=== PATIENT | female | born 1975 | race Caucasian/White ===

== ENCOUNTER 2018-12-08 12:38 | Inpatient (IN) | payer BC, SELFPAY ==
[2018-12-08] VITALS (12 sets, daily range): BP systolic 88–114; BP diastolic 46–85; PULSE 44–67; RESP 12–22; TEMP 36–36.3; O2SAT 93–100; BMI 28.4
--- NOTE | 2018-12-08 13:05 | DI.CT.S_ITS ---
PROCEDURE: CT HEAD/BRAIN WO CON INDICATIONS: found down TECHNIQUE: Noncontrast 4.5 mm thick angled axial sections acquired from the foramen magnum to the vertex, with coronal and sagittal reformats. For radiation dose reduction, the following was used: automated exposure control, adjustment of mA and/or kV according to patient size. COMPARISON: None. FINDINGS: Image quality: Excellent. CSF spaces: Basal cisterns are patent. No extra-axial fluid collections. Ventricles are normal in size and shape. Brain: No midline shift. No intracranial masses or hemorrhage. Coker-white matter interface is normal. Skull and face: Calvarium and visualized facial bones are intact, without suspicious lesions. Sinuses: Visualized sinuses and mastoids are clear. IMPRESSION: No acute intracranial disease process. Dictated by: Jeanette Mendiola MD, PhD on 12/08/2018 at 14:09 Approved by: Jeanette Mendiola MD, PhD on 12/08/2018 at 14:30
[2018-12-08] MEDS: NALOXONE 1 MG/ML SYRINGE 2 MG IV (13:16)
[2018-12-08 13:17] LABS: Prothrombin Time 11.5 SECONDS (10.1-12.7)
[2018-12-08] MEDS: SODIUM CHLORIDE 0.9% 1,000 ML 150 ML IV ×2 (13:17→16:46)
[2018-12-08 13:19] LABS: Add Manual Diff / Slide Review NO; Basophils Absolute Auto 0 /uL (0-100); Basophils Percent Auto 0.4 % (0-2); Eosinophils Absolute Auto 200 /uL (0-450); Eosinophils Percent Auto 1.6 % (2-4); Hematocrit 41.4 % (36-46); Hemoglobin 14.3 g/dL (12.0-16.0); Lymphocytes Absolute Auto 2300 /uL (1100-4500); Lymphocytes Percent Auto 24.3 % (25-40); Mean Corpuscular HGB Conc 34.4 % (30-36); Mean Corpuscular Hemoglobin 29.4 PG (26-34); Mean Corpuscular Volume 85.4 fL (80-100); Monocytes Absolute Auto 600 /uL (0-900); Monocytes Percent Auto 6.5 % (3-14); Neutrophils Absolute Auto 6400 /uL (1500-7000); Neutrophils Percent Auto 67.2 % (50-75); Platelet Count 241 X10^3/uL (150-400); Red Blood Cell Count 4.85 X10^6/uL (4.0-5.2); Red Cell Distribution Width 14.9 % (11.6-14.8); White Blood Cell Count 9.4 X10^3/uL (4.5-11.0)
[2018-12-08 13:20] LABS: PTT Partial Thromboplastin Tim 32 SECONDS (26.4-36.2)
--- NOTE | 2018-12-08 13:23 | PC.NURSE ---
Patient lethargic with altered mental status; Unable to answer any questions;
[2018-12-08 13:24] LABS: Acetaminophen < 10 ug/mL (10-30); Alanine Aminotransferase 13 IU/L (9-52); Albumin 4.9 g/dL (3.5-5.0); Albumin Globulin Ratio 1.4 (1.0-2.8); Alkaline Phosphatase 51 U/L (38-126); Aspartate Aminotransferase 31 IU/L (14-36); Bilirubin Total 0.7 mg/dL (0.2-1.3); Blood Urea Nitrogen 11 mg/dL (7-17); Calcium 10.3 mg/dL (8.4-10.2); Carbon Dioxide 21 mmol/L (22-32); Chloride 108 mmol/L (98-107); Creatine Kinase 202 U/L (30-135); Estimated Glomerular Filt Rate 54.7 mL/min (>60); Ethanol (ETOH) < 10 mg/dL; Globulin 3.4 g/dL (1.7-4.1); Glucose 133 mg/dL (70-100); HEMOLYSIS 30 (0-50); Potassium 3.8 mmol/L (3.4-5.1); Salicylate 7.3 mg/dL (<20); Sodium 143 mmol/L (137-145); Total Protein 8.3 g/dL (6.3-8.2)
[2018-12-08 13:27] LABS: Urine Amphetamines Negative (Negative); Urine Barbiturates Negative (Negative); Urine Benzodiazepines Negative (Negative); Urine Cocaine Negative (Negative); Urine MDMA Negative (Negative); Urine Methadone Negative (Negative); Urine Methamphetamines Negative (Negative); Urine Morphine/Opi cutoff 2000 Negative (Negative); Urine Oxycodone Negative (Negative); Urine Phencyclidine Negative (Negative); Urine Tetrahydrocannabinol Negative (Negative); Urine Tricyclic Antidepressant Negative (Negative)
--- NOTE | 2018-12-08 13:27 | PC.NURSE ---
Spoke w/ poison control.Gave list to poison control.
--- NOTE | 2018-12-08 13:32 | ED.AMS ---
HPI - Altered Mental Status General Chief Complaint: Altered Mental Status Stated Complaint: Overdose Time Seen by Provider: 12/08/18 12:42 Source: family and EMS Mode of arrival: EMS Limitations: altered mental status History of Present Illness HPI narrative: Patient is a 43-year-old female found unresponsive in a hotel room. She apparently missed checkout time made when in found her in the bathroom unresponsive which time EMS was called. Suicide no was found as well. She is unable to tell us which of her many medications she has taken. The only medication bottle that is empty is clonazepam which was filled in October 2018. Her has called multiple times week spoke with him she apparently is bipolar she has had multiple suicide attempts in the past. He says they sort of wait for a phone call from emergency department. She was out here for a job interview on Saturday. She lives in [place]. complaint: altered mental status Related Data Home Medications Medication Instructions Recorded Confirmed B-complex with vitamin C [Super B 1 tab PO DAILY 12/08/18 12/08/18 Complex-Vitamin C] PNV cmb#95-ferrous fumarate-FA 1 tab PO DAILY 12/08/18 12/08/18 [] aspirin 81 mg PO DAILY 12/08/18 12/08/18 atorvastatin 40 mg PO DAILY 12/08/18 12/08/18 clonazepam 0.5 mg PO DAILY PRN 12/08/18 12/08/18 diclofenac sodium 2 g TOPICAL QID 12/08/18 12/08/18 esomeprazole magnesium 40 mg PO DAILY 12/08/18 12/08/18 fenofibrate 54 mg PO DAILY 12/08/18 12/08/18 fluvoxamine 100 mg PO DAILY 12/08/18 12/08/18 gabapentin 600 mg PO TID 12/08/18 12/08/18 levocetirizine 5 mg PO PRN PRN 12/08/18 12/08/18 levothyroxine 125 mcg PO DAILY 12/08/18 12/08/18 naltrexone 50 mg PO DAILY 12/08/18 12/08/18 olopatadine 1 drp OPHTHALMIC (EYE) DAILY PRN 12/08/18 12/08/18 oxcarbazepine 300 mg PO BID 12/08/18 12/08/18 propranolol 60 mg PO DAILY 12/08/18 12/08/18 sucralfate 1 g PO BID 12/08/18 12/08/18 sumatriptan succinate 100 mg PO .ONCE PRN 12/08/18 12/08/18 topiramate 100 mg PO QAM 12/08/18 12/08/18 topiramate 200 mg PO QPM 12/08/18 12/08/18 trazodone 100 mg PO BEDTIME 12/08/18 12/08/18 ziprasidone HCl 80 mg PO BID 12/08/18 12/08/18 Allergies Allergy/AdvReac Type Severity Reaction Status Date / Time meperidine [From Demerol] Allergy Unknown Verified 12/08/18 14:48 Review of Systems Review of Systems ROS Unobtainable: Unobtainable due to medical condition Exam Initial Vital Signs Initial Vital Signs: Vital Signs Temperature 97.4 F L 12/08/18 12:30 Pulse Rate 46 L 12/08/18 12:30 Respiratory Rate 14 12/08/18 12:30 Blood Pressure 105/85 12/08/18 12:30 Pulse Oximetry 100 12/08/18 12:30 Gen.: Responsive to pain slightly diaphoretic HEENT: Head is atraumatic pupils not pinpoint reactive to light equal Neck: Supple no JVD Lungs: Clear bilaterally no wheezes rales or rhonchi Cardiac: Regular rate no murmur Abdomen: Soft nontender nondistend Extremities: No gross bony deformities peripheral pulses intact Neurologic: Responsive to pain mumbles words but they are unintelligible. Unable to follow commands Scores GCS [place] coma scale eye opening: To pressure [place] coma scale verbal response: Sounds Jackie coma scale motor response: Localising [place] coma scale total score: 9 Course Orders Ordered: ED Orders 12/08/18 12:47 EKG-12 Lead Stat 12/08/18 13:05 CT head/brain wo con Stat 12/08/18 13:11 Acetaminophen Stat Complete Blood Count AUTO DIFF Stat Comprehensive Metabolic Panel Stat Creatine Kinase Stat Ethanol (ETOH) Stat Partial Thromboplastin Time Stat Prolactin Stat Prothrombin Time INR Stat Salicylate Stat Thyroid Stimulating Hormone Stat Troponin I Stat Urine Culture Stat Urine Drug Screen, Rapid Stat 12/08/18 13:22 ABG [Arterial Blood Gas] Stat 12/08/18 13:32 Ammonia (NH3) Stat Lactate (Lactic Acid) Stat [place] Stat 12/08/18 13:39 Blood Culture Stat 12/08/18 16:05 MRSA PCR Urgent 12/08/18 18:48 Magnesium Urgent 12/08/18 19:00 Acetaminophen Urgent Sodium Chloride (Normal Saline 0.9%) 1,000 mls @ 150 mls/hr IV CONT VALERIO Last Admin: 12/08/18 16:46 Dose: 150 mls/hr Infusion: 12/08/18 15:51 Dose: 0 mls/hr Admin: 12/08/18 13:17 Dose: 150 mls/hr Non-Formulary Medication (Patient's Own Medication) 0 each PO PRN PRN PRN Reason: HOME MEDICATION STORAGE Discontinued Medications Naloxone HCl (Narcan) 2 mg IV NOW ONE Stop: 12/08/18 13:16 Last Admin: 12/08/18 13:18 Dose: Not Given Vital Signs - 8 hr 12/08/18 12:30 12/08/18 13:00 12/08/18 13:10 Temperature 97.4 F L Pulse Rate 46 L 48 L 47 L Respiratory Rate 14 14 12 Blood Pressure 105/85 Blood Pressure [Right Arm] 97/57 L 90/72 Pulse Oximetry 100 100 100 12/08/18 13:32 12/08/18 14:30 12/08/18 15:11 Temperature 97.4 F L Pulse Rate 49 L 44 L 62 Respiratory Rate 16 14 15 Blood Pressure Blood Pressure [Right Arm] 101/59 L 107/59 L 98/69 Pulse Oximetry 100 100 100 12/08/18 15:40 12/08/18 16:00 12/08/18 18:04 Temperature 96.8 F L Pulse Rate 52 L 57 L 66 Respiratory Rate 20 17 18 Blood Pressure 114/63 95/46 L Blood Pressure [Right Arm] 104/62 Pulse Oximetry 95 100 96 MDM - Altered Mental Status Lab Data Attestation: I reviewed the patient's lab results. Result diagrams: 12/08/18 13:11 12/08/18 13:11 Lab Results 12/08/18 12/08/18 12/08/18 Range/Units 13:11 13:11 13:11 WBC 9.4 (4.5-11.0) X10^3/uL RBC 4.85 (4.0-5.2) X10^6/uL Hgb 14.3 (12.0-16.0) g/dL Hct 41.4 (36-46) % MCV 85.4 (80-100) fL MCH 29.4 (26-34) PG MCHC 34.4 (30-36) % RDW 14.9 H (11.6-14.8) % Plt Count 241 (150-400) X10^3/uL Neut % (Auto) 67.2 (50-75) % Lymph % (Auto) 24.3 L (25-40) % [place] % (Auto) 6.5 (3-14) % Eos % (Auto) 1.6 L (2-4) % Baso % (Auto) 0.4 (0-2) % Neut # (Auto) 6400 (1014-7631) /uL Lymph # (Auto) 2300 (1717-1091) /uL [place] # (Auto) 600 (0-900) /uL Eos # (Auto) 200 (0-450) /uL Baso # (Auto) 0 (0-100) /uL PT 11.5 (10.1-12.7) SECONDS INR 1.0 (0.9-1.3) APTT 32 (26.4-36.2) SECONDS ABG pH (7.35-7.45) ABG pCO2 (35-45) mmHg ABG pO2 (80-100) mmHg ABG HCO3 (22-26) mmol/L ABG Total CO2 (21-31) mmol/L ABG O2 Saturation (95-100) % ABG Base Excess (-2-2) mmol/L FiO2 Sodium (137-145) mmol/L Potassium (3.4-5.1) mmol/L Chloride (98-107) mmol/L Carbon Dioxide (22-32) mmol/L BUN (7-17) mg/dL Creatinine (0.52-1.04) mg/dL Estimated GFR (>60) mL/min BUN/Creatinine Ratio (6-22) Glucose (70-100) mg/dL Lactate (0.7-2.1) mmol/L Calcium (8.4-10.2) mg/dL Total Bilirubin (0.2-1.3) mg/dL AST (14-36) IU/L ALT (9-52) IU/L Alkaline Phosphatase (38-126) U/L Ammonia (9-30) umol/L Total Creatine Kinase 202 H (30-135) U/L Troponin I (0.01-0.034) ng/mL Total Protein (6.3-8.2) g/dL Albumin (3.5-5.0) g/dL Globulin (1.7-4.1) g/dL Albumin/Globulin Ratio (1.0-2.8) TSH (0.47-4.68) uIU/mL Prolactin (3.0-18.6) ng/mL Salicylates (<20) mg/dL Urine Opiates Screen (Negative) Ur Oxycodone Screen (Negative) Urine Methadone Screen (Negative) Acetaminophen (10-30) ug/mL Ur Barbiturates Screen (Negative) U Tricyclic Antidepress (Negative) Ur Phencyclidine Scrn (Negative) Ur Amphetamines Screen (Negative) U Methamphetamines Scrn (Negative) Ur MDMA Scrn (Ecstasy) (Negative) U Benzodiazepines Scrn (Negative) [place] (0.6-1.2) mmol/L Urine Cocaine Screen (Negative) U Marijuana (THC) Screen (Negative) Ethyl Alcohol ( - 10) mg/dL 12/08/18 12/08/18 12/08/18 Range/Units 13:11 13:11 13:11 WBC (4.5-11.0) X10^3/uL RBC (4.0-5.2) X10^6/uL Hgb (12.0-16.0) g/dL Hct (36-46) % MCV (80-100) fL MCH (26-34) PG MCHC (30-36) % RDW (11.6-14.8) % Plt Count (150-400) X10^3/uL Neut % (Auto) (50-75) % Lymph % (Auto) (25-40) % [place] % (Auto) (3-14) % Eos % (Auto) (2-4) % Baso % (Auto) (0-2) % Neut # (Auto) (3795-1013) /uL Lymph # (Auto) (4674-7213) /uL [place] # (Auto) (0-900) /uL Eos # (Auto) (0-450) /uL Baso # (Auto) (0-100) /uL PT (10.1-12.7) SECONDS INR (0.9-1.3) APTT (26.4-36.2) SECONDS ABG pH (7.35-7.45) ABG pCO2 (35-45) mmHg ABG pO2 (80-100) mmHg ABG HCO3 (22-26) mmol/L ABG Total CO2 (21-31) mmol/L ABG O2 Saturation (95-100) % ABG Base Excess (-2-2) mmol/L FiO2 Sodium 143 (137-145) mmol/L Potassium 3.8 (3.4-5.1) mmol/L Chloride 108 H (98-107) mmol/L Carbon Dioxide 21 L (22-32) mmol/L BUN 11 (7-17) mg/dL Creatinine 1.10 H (0.52-1.04) mg/dL Estimated GFR 54.7 L (>60) mL/min BUN/Creatinine Ratio 10.0 (6-22) Glucose 133 H (70-100) mg/dL Lactate (0.7-2.1) mmol/L Calcium 10.3 H (8.4-10.2) mg/dL Total Bilirubin 0.7 (0.2-1.3) mg/dL AST 31 (14-36) IU/L ALT 13 (9-52) IU/L Alkaline Phosphatase 51 (38-126) U/L Ammonia (9-30) umol/L Total Creatine Kinase (30-135) U/L Troponin I < 0.012 (0.01-0.034) ng/mL Total Protein 8.3 H (6.3-8.2) g/dL Albumin 4.9 (3.5-5.0) g/dL Globulin 3.4 (1.7-4.1) g/dL Albumin/Globulin Ratio 1.4 (1.0-2.8) TSH 0.74 (0.47-4.68) uIU/mL Prolactin 18.8 H (3.0-18.6) ng/mL Salicylates 7.3 (<20) mg/dL Urine Opiates Screen Negative (Negative) Ur Oxycodone Screen Negative (Negative) Urine Methadone Screen Negative (Negative) Acetaminophen < 10 L (10-30) ug/mL Ur Barbiturates Screen Negative (Negative) U Tricyclic Antidepress Negative (Negative) Ur Phencyclidine Scrn Negative (Negative) Ur Amphetamines Screen Negative (Negative) U Methamphetamines Scrn Negative (Negative) Ur MDMA Scrn (Ecstasy) Negative (Negative) U Benzodiazepines Scrn Negative (Negative) [place] (0.6-1.2) mmol/L Urine Cocaine Screen Negative (Negative) U Marijuana (THC) Screen Negative (Negative) Ethyl Alcohol < 10 ( - 10) mg/dL 12/08/18 12/08/18 12/08/18 Range/Units 13:22 13:32 13:32 WBC (4.5-11.0) X10^3/uL RBC (4.0-5.2) X10^6/uL Hgb (12.0-16.0) g/dL Hct (36-46) % MCV (80-100) fL MCH (26-34) PG MCHC (30-36) % RDW (11.6-14.8) % Plt Count (150-400) X10^3/uL Neut % (Auto) (50-75) % Lymph % (Auto) (25-40) % [place] % (Auto) (3-14) % Eos % (Auto) (2-4) % Baso % (Auto) (0-2) % Neut # (Auto) (0737-8190) /uL Lymph # (Auto) (7398-2627) /uL [place] # (Auto) (0-900) /uL Eos # (Auto) (0-450) /uL Baso # (Auto) (0-100) /uL PT (10.1-12.7) SECONDS INR (0.9-1.3) APTT (26.4-36.2) SECONDS ABG pH 7.33 L (7.35-7.45) ABG pCO2 34.9 L (35-45) mmHg ABG pO2 92 (80-100) mmHg ABG HCO3 19 L (22-26) mmol/L ABG Total CO2 20 L (21-31) mmol/L ABG O2 Saturation 97 (95-100) % ABG Base Excess -7.0 L (-2-2) mmol/L FiO2 0.21 Sodium (137-145) mmol/L Potassium (3.4-5.1) mmol/L Chloride (98-107) mmol/L Carbon Dioxide (22-32) mmol/L BUN (7-17) mg/dL Creatinine (0.52-1.04) mg/dL Estimated GFR (>60) mL/min BUN/Creatinine Ratio (6-22) Glucose (70-100) mg/dL Lactate 1.7 (0.7-2.1) mmol/L Calcium (8.4-10.2) mg/dL Total Bilirubin (0.2-1.3) mg/dL AST (14-36) IU/L ALT (9-52) IU/L Alkaline Phosphatase (38-126) U/L Ammonia 33.0 H (9-30) umol/L Total Creatine Kinase (30-135) U/L Troponin I (0.01-0.034) ng/mL Total Protein (6.3-8.2) g/dL Albumin (3.5-5.0) g/dL Globulin (1.7-4.1) g/dL Albumin/Globulin Ratio (1.0-2.8) TSH (0.47-4.68) uIU/mL Prolactin (3.0-18.6) ng/mL Salicylates (<20) mg/dL Urine Opiates Screen (Negative) Ur Oxycodone Screen (Negative) Urine Methadone Screen (Negative) Acetaminophen (10-30) ug/mL Ur Barbiturates Screen (Negative) U Tricyclic Antidepress (Negative) Ur Phencyclidine Scrn (Negative) Ur Amphetamines Screen (Negative) U Methamphetamines Scrn (Negative) Ur MDMA Scrn (Ecstasy) (Negative) U Benzodiazepines Scrn (Negative) [place] (0.6-1.2) mmol/L Urine Cocaine Screen (Negative) U Marijuana (THC) Screen (Negative) Ethyl Alcohol ( - 10) mg/dL 12/08/18 Range/Units 13:32 WBC (4.5-11.0) X10^3/uL RBC (4.0-5.2) X10^6/uL Hgb (12.0-16.0) g/dL Hct (36-46) % MCV (80-100) fL MCH (26-34) PG MCHC (30-36) % RDW (11.6-14.8) % Plt Count (150-400) X10^3/uL Neut % (Auto) (50-75) % Lymph % (Auto) (25-40) % [place] % (Auto) (3-14) % Eos % (Auto) (2-4) % Baso % (Auto) (0-2) % Neut # (Auto) (6418-8043) /uL Lymph # (Auto) (9892-6255) /uL [place] # (Auto) (0-900) /uL Eos # (Auto) (0-450) /uL Baso # (Auto) (0-100) /uL PT (10.1-12.7) SECONDS INR (0.9-1.3) APTT (26.4-36.2) SECONDS ABG pH (7.35-7.45) ABG pCO2 (35-45) mmHg ABG pO2 (80-100) mmHg ABG HCO3 (22-26) mmol/L ABG Total CO2 (21-31) mmol/L ABG O2 Saturation (95-100) % ABG Base Excess (-2-2) mmol/L FiO2 Sodium (137-145) mmol/L Potassium (3.4-5.1) mmol/L Chloride (98-107) mmol/L Carbon Dioxide (22-32) mmol/L BUN (7-17) mg/dL Creatinine (0.52-1.04) mg/dL Estimated GFR (>60) mL/min BUN/Creatinine Ratio (6-22) Glucose (70-100) mg/dL Lactate (0.7-2.1) mmol/L Calcium (8.4-10.2) mg/dL Total Bilirubin (0.2-1.3) mg/dL AST (14-36) IU/L ALT (9-52) IU/L Alkaline Phosphatase (38-126) U/L Ammonia (9-30) umol/L Total Creatine Kinase (30-135) U/L Troponin I (0.01-0.034) ng/mL Total Protein (6.3-8.2) g/dL Albumin (3.5-5.0) g/dL Globulin (1.7-4.1) g/dL Albumin/Globulin Ratio (1.0-2.8) TSH (0.47-4.68) uIU/mL Prolactin (3.0-18.6) ng/mL Salicylates (<20) mg/dL Urine Opiates Screen (Negative) Ur Oxycodone Screen (Negative) Urine Methadone Screen (Negative) Acetaminophen (10-30) ug/mL Ur Barbiturates Screen (Negative) U Tricyclic Antidepress (Negative) Ur Phencyclidine Scrn (Negative) Ur Amphetamines Screen (Negative) U Methamphetamines Scrn (Negative) Ur MDMA Scrn (Ecstasy) (Negative) U Benzodiazepines Scrn (Negative) [place] < 0.2 L (0.6-1.2) mmol/L Urine Cocaine Screen (Negative) U Marijuana (THC) Screen (Negative) Ethyl Alcohol ( - 10) mg/dL Point of Care Testing Test Results Negative Glucose POC [address] scan - head: Radiologist's impression: PROCEDURE: CT HEAD/BRAIN WO CON INDICATIONS: found down TECHNIQUE: Noncontrast 4.5 mm thick angled axial sections acquired from the foramen magnum to the vertex, with coronal and sagittal reformats. For radiation dose reduction, the following was used: automated exposure control, adjustment of mA and/or kV according to patient size. COMPARISON: None. FINDINGS: Image quality: Excellent. CSF spaces: Basal cisterns are patent. No extra-axial fluid collections. Ventricles are normal in size and shape. Brain: No midline shift. No intracranial masses or hemorrhage. [place]oker-white matter interface is normal. Skull and face: Calvarium and visualized facial bones are intact, without suspicious lesions. Sinuses: Visualized sinuses and mastoids are clear. IMPRESSION: No acute intracranial disease process. Dictated by: Jeanette Mendiola MD, PhD on 12/08/2018 at 14:09 ECG Data Attestation: I personally reviewed and interpreted this ECG as follows: Prior ECG tracings: not available for review Interpretation: Sinus rhythm rate 49 p.r. interval 191 QRS 95 QTC 430 MDM Narrative Medical decision making narrative: Poison Control was contacted initially. Most of patient's medications are quite full. Clonazepam filled in October is empty. Her tox screen is completely negative. She was given 2 mg of Narcan and had no response. It is unclear what she took an overdose on. Her did call the emergency department we got some history from him as stated in the above HPI frequent attempts of suicide. Poison Control was contacted initially at this time recommend supportive care. Patient's heart rate is lower in the 40s it does not drop into the 30s. Blood pressure response well with IV fluids. At this time I do not believe her to have a beta-charli overdose. She is taking propranolol that bottle again also is quite full. Patient will need to be be more awake before she can be medically cleared. At this time she like he did several hours. I have spoken with Dr. blevins who accepts her to inpatient aware of need for suicide precautions. At this time she is responsive to pain no need for intubation Discharge Plan Departure Patient Disposition: Admitted As Inpatient Clinical Impression: Suicidal ideation, Acute metabolic encephalopathy Discharge Date/Time: 12/08/18 15:49 Interventions: ED Discharge Assessment Last Done: 12/08/18 15:45 Admit Date/Time: 12/08/18 15:20 Admit Provider: Yara Pineda
[2018-12-08 13:34] LABS: Troponin I < 0.012 ng/mL (0.01-0.034)
--- NOTE | 2018-12-08 13:34 | PC.NURSE ---
Poison control: Supportive care at this time.
--- NOTE | 2018-12-08 13:36 | PC.NURSE ---
ABG per RT;
[2018-12-08 13:38] LABS: Fractionated Inspired Oxygen 0.21; HCO3 ABG 19 mmol/L (22-26); Oxygen Saturation ABG 97 % (95-100); PCO2 ABG 34.9 mmHg (35-45); PO2 ABG 92 mmHg (80-100); TCO2 ABG 20 mmol/L (21-31); pH ABG 7.33 (7.35-7.45)
[2018-12-08 13:38] LABS: Prolactin 18.8 ng/mL (3.0-18.6)
[2018-12-08 13:49] LABS: Lactate (Lactic Acid) 1.7 mmol/L (0.7-2.1)
[2018-12-08 14:31] LABS: Thyroid Stimulating Hormone 0.74 uIU/mL (0.47-4.68)
--- NOTE | 2018-12-08 14:56 | PC.NURSE ---
Found Armando and [place] on pt's phone and was able to contact. Armando is pt's ([phone]) and next of kin. Armando states pt has had 2 previous serious suicide attempts both w/ hydrocodone but states she no longer has it prescribed to her. She has also had toxic lithium level in the past. (Order for lithium placed...not in current medication bottles.) Armando states that she has long h/o bipolar disorder and that this attempt is not unexpected. He states she came to [employer] for a job interview. Updated on patient condition. States he will wait for further information before traveling north.
--- NOTE | 2018-12-08 15:05 | PC.NURSE ---
[facility] states PCP is Finn Plummer: [facility] ([place], [place]) [phone]. Office is currently closed. Attempting to get records from [facility], left message.
[2018-12-08 15:20] LABS: Lithium < 0.2 mmol/L (0.6-1.2)
--- NOTE | 2018-12-08 17:53 | PC.NURSE ---
Addendum entered by Crystal Momin R.N. 12/08/18 19:27: 1925 - Pt opens eyes to light stimuli. Reports sore throat, however movement and mentation continues to be delayed. Reoriented to place and situation. Otherwise pt is resting quietly. HR 70, BP 97/54. 1845 - Call received from Poison Control Center. Suggested magnesium level be checked r/t prolong QT. Mag level add on to ER lab work. Original Note: 1600 - Pt to room from ER. Transfer to bed via slider board. Pt able to open her eyes. Able to say that she is in the hospital, and that she has a sore throat. Weakness to all extremities. Tracks finger movement with eyes to the left then dozing off. Skin intact. playground monitor demonstrating SB with prolong QT. Dr. Pineda notified that pt has arrived in room and of current HR. Pt with a bag full of medications, delivered to pharmacy. 1800 - Pt resting in bed. Snoring. Seizure pads in place. BP 95/46, HR 66. Sats 96% on RA. Bed alarm on.
--- NOTE | 2018-12-08 19:24 | CM.SWNOTE ---
AUTO HIKER Note: AUTO HIKER reviewed chart and contacted ICU. SPoke with pt's RN, Naomy who informed AUTO HIKER that pt is not medically clear, only intermittently awake and and when awake responds in 1 word answers. Although it appears as though this was an intentional OD, since pt cannot be interviewed, a mental health assessment cannot be completed at this time. SW will continue to follow.
[2018-12-08 19:38] LABS: Acetaminophen < 10 ug/mL (10-30)
--- NOTE | 2018-12-08 20:14 | DI.RAD.S_ITS ---
PROCEDURE: XR CHEST 1V INDICATIONS: Altered mental status, poss aspiration TECHNIQUE: One view of the chest was acquired. COMPARISON: None. FINDINGS: Surgical changes and devices: None. Lungs and pleura: Lungs are clear. No pleural effusions or pneumothorax. Mediastinum: Mediastinal contours appear normal. Heart size is normal. Bones and chest wall: No suspicious bony lesions. Overlying soft tissues appear unremarkable. IMPRESSION: No acute cardiopulmonary disease process. Dictated by: Jeanette Mendiola MD, PhD on 12/08/2018 at 21:03 Approved by: Jeanette Mendiola MD, PhD on 12/08/2018 at 21:04
[2018-12-08 20:15] LABS: Bacteria Urine None Seen; RBC Urine None Seen (0-5/HPF)
[2018-12-08 20:28] LABS: Appearance Urine UA CLEAR; Bilirubin Urine UA NEGATIVE (NEGATIVE); Color Urine UA YELLOW; Glucose Urine UA NEGATIVE (Negative); Ketones Urine UA NEGATIVE (NEGATIVE); Leukocyte Esterase Urine UA NEGATIVE (NEGATIVE); Nitrite Urine UA NEGATIVE (Negative); Occult Blood Urine UA NEGATIVE (Negative); Protein Urine UA NEGATIVE (Negative); Urobilinogen Urine UA 0.2 E.U./dL (0.2); pH Urine UA 6.5 (4.5-8.0)
[2018-12-08 20:34] LABS: Squamous Epithelial Cell Urine 1-5 /HPF (0-5/HPF); WBC Urine 0-1/HPF (0-5/HPF)
[2018-12-08 20:35] LABS: Amorphous Sediment Urine 1+; Culture Indicated Urine Cult Not Indicated; Mucus Urine 1+ (Negative)
[2018-12-08] MEDS: CEFTRIAXONE 2 GM/50 ML FROZ.PIGGY IV (20:58)
[2018-12-08] MEDS: FAMOTIDINE 20 MG/50 ML PIGGYBACK 200 MG IV (21:58)
[2018-12-08] MEDS: SODIUM CHLORIDE 0.9% FLUSH 10 ML IV (21:58)
--- NOTE | 2018-12-08 22:49 | P.HP_ITS ---
History of Present Illness Date Patient Seen: 12/08/18 Time Patient Seen: 20:05 Chief complaint: Overdose Narrative: Ms. Roberta Chin is a 43-year-old female patient with history significant for bipolar disorder, prior multiple suicidal attempts who presents to the emergency department the EMS following being found down in her hotel room for unknown period of time. Little medical information is available as it appears the patient is here for job interview from out of the area. The patient was found down in her room at her hotel following missing checkout time. A note was found in the patient's room but is not available for review but with allegedly indicats that this was an intentional overdose with directions on what to do with her belongings. The ER provider did speak with patient's who ascertained that the patient has had multiple prior suicide attempts. It is noted the patient has significant polypharmacy from numerous different providers. The patient is very somnolent responding to verbal stimulus and able to state that she is in [place] and state the year but has difficulty with the month. Her speech is slurred and she mumbles and is only able to remain responsive for brief periods. The patient is able to indicate that she took clonazepam and on repeated questioning acknowledges that she took 29 pills, confirms the bottle was full and that she is not taking the medication since prescribed in October. The remainder the patient's medications appear to have been accounted for. The patient is unable to participate in a meaningful review of systems however she denies complaints of pain, has no chest pain or shortness of breath, abdominal pain or nausea. Upon arrival in the ER the patient was afebrile at 97.4, bradycardic at heart rate of 46, blood pressure 105/85, respirations 14 saturating 100% on room air. A CT of the head was obtained finding no acute intracranial processes. Laboratory analysis reveals white count of 9.4, hemoglobin of 14.3 and hematocrit of 41.4 with a platelet count of 241. Her coagulation studies are within normal limits as are her electrolytes. Her BUN and creatinine are 11 and 1.0 respectively. A nonfasting glucose is 133. Lactic acid is 1.3 and magnesium 2.0. An ABG was obtained finding pH of 7.33, pCO2 34.9, PO2 of 92 with a bicarb of 19 and base excess of -7 on room air. Tox screen is negative for benzodiazepines negative for lithium, aspirin or Tylenol or other substances. At this time the patient is admitted to the ICU stuporous following overdose of unclear source in an intentional suicide attempt. Patient History Medical History Bipolar 1 disorder (Acute) Suicide attempt (Acute) Social History Smoking Status: Unknown if ever smoked Family & Social History Family history unavailable: Yes (Due to patient's altered mental status) Social History: From review of the medical record the patient appears to live in [place] and was traveling to [place] for a job interview. The patient's social and family history are unobtainable. Smoking: Unknown Alcohol: Unknown Substance use: Unknown Advanced directives: At this time the patient is on an involuntary hold following attempted suicide and will be a FULL CODE. The patient does not have capacity to name a surrogate decision maker. Tobacco & Substance use: Smoking Status Unknown if ever smoked Meds Home Medications Medication Instructions Recorded Confirmed Type B-complex with vitamin C [Super B 1 tab PO DAILY 12/08/18 12/08/18 History Complex-Vitamin C] PNV cmb#95-ferrous fumarate-FA 1 tab PO DAILY 12/08/18 12/08/18 History [] aspirin 81 mg PO DAILY 12/08/18 12/08/18 History atorvastatin 40 mg PO DAILY 12/08/18 12/08/18 History clonazepam 0.5 mg PO DAILY PRN 12/08/18 12/08/18 History diclofenac sodium 2 g TOPICAL QID 12/08/18 12/08/18 History esomeprazole magnesium 40 mg PO DAILY 12/08/18 12/08/18 History fenofibrate 54 mg PO DAILY 12/08/18 12/08/18 History fluvoxamine 100 mg PO DAILY 12/08/18 12/08/18 History gabapentin 600 mg PO TID 12/08/18 12/08/18 History levocetirizine 5 mg PO PRN PRN 12/08/18 12/08/18 History levothyroxine 125 mcg PO DAILY 12/08/18 12/08/18 History naltrexone 50 mg PO DAILY 12/08/18 12/08/18 History olopatadine 1 drp OPHTHALMIC (EYE) DAILY PRN 12/08/18 12/08/18 History oxcarbazepine 300 mg PO BID 12/08/18 12/08/18 History propranolol 60 mg PO DAILY 12/08/18 12/08/18 History sucralfate 1 g PO BID 12/08/18 12/08/18 History sumatriptan succinate 100 mg PO .ONCE PRN 12/08/18 12/08/18 History topiramate 100 mg PO QAM 12/08/18 12/08/18 History topiramate 200 mg PO QPM 12/08/18 12/08/18 History trazodone 100 mg PO BEDTIME 12/08/18 12/08/18 History ziprasidone HCl 80 mg PO BID 12/08/18 12/08/18 History Allergies Allergy/AdvReac Type Severity Reaction Status Date / Time meperidine [From Demerol] Allergy Unknown Verified 12/08/18 14:48 Review of Systems Review of Systems unobtainable due to mental status (Status post overdose, somnolent) Exam Vital Signs (past 8 hours): - 12/08/18 15:11 12/08/18 15:40 12/08/18 16:00 Temperature 96.8 F L Pulse Rate 62 52 L 57 L Respiratory Rate 15 20 17 Blood Pressure 114/63 Blood Pressure [Right Arm] 98/69 104/62 Pulse Oximetry 100 95 100 12/08/18 18:04 12/08/18 20:24 12/08/18 21:09 Temperature Pulse Rate 66 67 Respiratory Rate 18 22 Blood Pressure 95/46 L 88/56 L Blood Pressure [Right Arm] Pulse Oximetry 96 94 93 12/08/18 22:01 Temperature Pulse Rate 64 Respiratory Rate 19 Blood Pressure 94/54 L Blood Pressure [Right Arm] Pulse Oximetry 96 Oxygen Delivery Method Nasal Cannula Oxygen Flow Rate 3 Narrative Exam Narrative: GENERAL APPEARANCE: well developed, well nourished, somnolent HEAD: Normocephalic, atraumatic, no scalp lesions. EYES: pupils equal, round, reactive to light and accommodation, sclera non- icteric. EARS: normal appearing, no drainage. NOSE: Normal appearing, no rhinorrhea. ORAL CAVITY: Dry mucous membranes without lesions or exudate, palate normal, tongue in midline. THROAT: Poorly visualized, no erythema noted. NECK/THYROID: neck supple, no jugular venous distention, no carotid bruit, b/l goiter no nodules noted, trachea midline. LYMPH NODES: no cervical or supraclavicular lymphadenopathy. SKIN: warm and dry, no suspicious lesions or punctures, no rashes, good turgor. HEART: Bradycardic rate and rhythm, S1-S2 without murmur, no rubs or gallops, brisk capillary refill, no edema LUNGS: clear to auscultation bilaterally, no coarseness crackles or wheezing, cough present with deep inspiration CHEST: Symmetrical movement, no accessory muscle use. ABDOMEN: Soft, no distention, no pain response to abdominal palpation, no guarding or peritoneal signs, no organomegaly, active bowel tones. EXTREMITIES: Moves all extremities weakly, movement is symmetrical, no joint deformities or effusions noted. NEUROLOGIC: Briefly responsive to tactile stimulus, AAO x2, generalized weakness, stuporous, follows commands inconsistently. PSYCH: Poor eye contact, briefly responsive to eye opening, states overdose was intentional and ?I did not know what to do?. Objective Labs Result Diagrams: 12/08/18 13:11 12/08/18 13:11 Labs: Laboratory Results - last 24 hr 12/08/18 12/08/18 12/08/18 13:00 13:00 13:11 WBC RBC Hgb Hct MCV MCH MCHC RDW Plt Count Neut % (Auto) Lymph % (Auto) [place] % (Auto) Eos % (Auto) Baso % (Auto) Neut # (Auto) Lymph # (Auto) [place] # (Auto) Eos # (Auto) Baso # (Auto) PT INR APTT ABG pH ABG pCO2 ABG pO2 ABG HCO3 ABG Total CO2 ABG O2 Saturation ABG Base Excess FiO2 Sodium Potassium Chloride Carbon Dioxide BUN Creatinine Estimated GFR BUN/Creatinine Ratio Glucose Lactate Calcium Magnesium Total Bilirubin AST ALT Alkaline Phosphatase Ammonia Total Creatine Kinase 202 H Troponin I Total Protein Albumin Globulin Albumin/Globulin Ratio TSH Prolactin Urine Color Yellow Urine Appearance Clear Urine pH 6.5 Ur Specific [place] 1.010 Urine Protein Negative Urine Glucose (UA) Negative Urine Ketones Negative Urine Occult Blood Negative Urine Nitrate Negative Urine Bilirubin Negative Urine Urobilinogen 0.2 Ur Leukocyte Esterase Negative Urine RBC None seen Urine WBC 0-1/hpf Ur Squamous Epith Cells 1-5 /hpf Amorphous Sediment 1+ Urine Bacteria None seen Urine Mucus 1+ H Ur Culture Indicated? Cult not indicated Nasal Screen MRSA (PCR) Salicylates Urine Opiates Screen Negative Ur Oxycodone Screen Negative Urine Methadone Screen Negative Acetaminophen Ur Barbiturates Screen Negative U Tricyclic Antidepress Negative Ur Phencyclidine Scrn Negative Ur Amphetamines Screen Negative U Methamphetamines Scrn Negative Ur MDMA Scrn (Ecstasy) Negative U Benzodiazepines Scrn Negative [place] Urine Cocaine Screen Negative U Marijuana (THC) Screen Negative Ethyl Alcohol 12/08/18 12/08/18 12/08/18 13:11 13:11 13:11 WBC 9.4 RBC 4.85 Hgb 14.3 Hct 41.4 MCV 85.4 MCH 29.4 MCHC 34.4 RDW 14.9 H Plt Count 241 Neut % (Auto) 67.2 Lymph % (Auto) 24.3 L [place] % (Auto) 6.5 Eos % (Auto) 1.6 L Baso % (Auto) 0.4 Neut # (Auto) 6400 Lymph # (Auto) 2300 [place] # (Auto) 600 Eos # (Auto) 200 Baso # (Auto) 0 PT 11.5 INR 1.0 APTT 32 ABG pH ABG pCO2 ABG pO2 ABG HCO3 ABG Total CO2 ABG O2 Saturation ABG Base Excess FiO2 Sodium 143 Potassium 3.8 Chloride 108 H Carbon Dioxide 21 L BUN 11 Creatinine 1.10 H Estimated GFR 54.7 L BUN/Creatinine Ratio 10.0 Glucose 133 H Lactate Calcium 10.3 H Magnesium Total Bilirubin 0.7 AST 31 ALT 13 Alkaline Phosphatase 51 Ammonia Total Creatine Kinase Troponin I < 0.012 Total Protein 8.3 H Albumin 4.9 Globulin 3.4 Albumin/Globulin Ratio 1.4 TSH Prolactin 18.8 H Urine Color Urine Appearance Urine pH Ur Specific [place] Urine Protein Urine Glucose (UA) Urine Ketones Urine Occult Blood Urine Nitrate Urine Bilirubin Urine Urobilinogen Ur Leukocyte Esterase Urine RBC Urine WBC Ur Squamous Epith Cells Amorphous Sediment Urine Bacteria Urine Mucus Ur Culture Indicated? Nasal Screen MRSA (PCR) Salicylates 7.3 Urine Opiates Screen Ur Oxycodone Screen Urine Methadone Screen Acetaminophen < 10 L Ur Barbiturates Screen U Tricyclic Antidepress Ur Phencyclidine Scrn Ur Amphetamines Screen U Methamphetamines Scrn Ur MDMA Scrn (Ecstasy) U Benzodiazepines Scrn [place] Urine Cocaine Screen U Marijuana (THC) Screen Ethyl Alcohol < 10 12/08/18 12/08/1812/08/19 13:11 13:22 13:32 WBC RBC Hgb Hct MCV MCH MCHC RDW Plt Count Neut % (Auto) Lymph % (Auto) [place] % (Auto) Eos % (Auto) Baso % (Auto) Neut # (Auto) Lymph # (Auto) [place] # (Auto) Eos # (Auto) Baso # (Auto) PT INR APTT ABG pH 7.33 L ABG pCO2 34.9 L ABG pO2 92 ABG HCO3 19 L ABG Total CO2 20 L ABG O2 Saturation 97 ABG Base Excess -7.0 L FiO2 0.21 Sodium Potassium Chloride Carbon Dioxide BUN Creatinine Estimated GFR BUN/Creatinine Ratio Glucose Lactate Calcium Magnesium Total Bilirubin AST ALT Alkaline Phosphatase Ammonia 33.0 H Total Creatine Kinase Troponin I Total Protein Albumin Globulin Albumin/Globulin Ratio TSH 0.74 Prolactin Urine Color Urine Appearance Urine pH Ur Specific [place] Urine Protein Urine Glucose (UA) Urine Ketones Urine Occult Blood Urine Nitrate Urine Bilirubin Urine Urobilinogen Ur Leukocyte Esterase Urine RBC Urine WBC Ur Squamous Epith Cells Amorphous Sediment Urine Bacteria Urine Mucus Ur Culture Indicated? Nasal Screen MRSA (PCR) Salicylates Urine Opiates Screen Ur Oxycodone Screen Urine Methadone Screen Acetaminophen Ur Barbiturates Screen U Tricyclic Antidepress Ur Phencyclidine Scrn Ur Amphetamines Screen U Methamphetamines Scrn Ur MDMA Scrn (Ecstasy) U Benzodiazepines Scrn [place] Urine Cocaine Screen U Marijuana (THC) Screen Ethyl Alcohol 12/08/18 12/08/18 12/08/18 13:32 13:32 16:05 WBC RBC Hgb Hct MCV MCH MCHC RDW Plt Count Neut % (Auto) Lymph % (Auto) [place] % (Auto) Eos % (Auto) Baso % (Auto) Neut # (Auto) Lymph # (Auto) [place] # (Auto) Eos # (Auto) Baso # (Auto) PT INR APTT ABG pH ABG pCO2 ABG pO2 ABG HCO3 ABG Total CO2 ABG O2 Saturation ABG Base Excess FiO2 Sodium Potassium Chloride Carbon Dioxide BUN Creatinine Estimated GFR BUN/Creatinine Ratio Glucose Lactate 1.7 Calcium Magnesium Total Bilirubin AST ALT Alkaline Phosphatase Ammonia Total Creatine Kinase Troponin I Total Protein Albumin Globulin Albumin/Globulin Ratio TSH Prolactin Urine Color Urine Appearance Urine pH Ur Specific [place] Urine Protein Urine Glucose (UA) Urine Ketones Urine Occult Blood Urine Nitrate Urine Bilirubin Urine Urobilinogen Ur Leukocyte Esterase Urine RBC Urine WBC Ur Squamous Epith Cells Amorphous Sediment Urine Bacteria Urine Mucus Ur Culture Indicated? Nasal Screen MRSA (PCR) Negative for mrsa Salicylates Urine Opiates Screen Ur Oxycodone Screen Urine Methadone Screen Acetaminophen Ur Barbiturates Screen U Tricyclic Antidepress Ur Phencyclidine Scrn Ur Amphetamines Screen U Methamphetamines Scrn Ur MDMA Scrn (Ecstasy) U Benzodiazepines Scrn [place] < 0.2 L Urine Cocaine Screen U Marijuana (THC) Screen Ethyl Alcohol 12/08/18 12/08/18 18:48 19:23 WBC RBC Hgb Hct MCV MCH MCHC RDW Plt Count Neut % (Auto) Lymph % (Auto) [place] % (Auto) Eos % (Auto) Baso % (Auto) Neut # (Auto) Lymph # (Auto) [place] # (Auto) Eos # (Auto) Baso # (Auto) PT INR APTT ABG pH ABG pCO2 ABG pO2 ABG HCO3 ABG Total CO2 ABG O2 Saturation ABG Base Excess FiO2 Sodium Potassium Chloride Carbon Dioxide BUN Creatinine Estimated GFR BUN/Creatinine Ratio Glucose Lactate Calcium Magnesium 2.0 Total Bilirubin AST ALT Alkaline Phosphatase Ammonia Total Creatine Kinase Troponin I Total Protein Albumin Globulin Albumin/Globulin Ratio TSH Prolactin Urine Color Urine Appearance Urine pH Ur Specific [place] Urine Protein Urine Glucose (UA) Urine Ketones Urine Occult Blood Urine Nitrate Urine Bilirubin Urine Urobilinogen Ur Leukocyte Esterase Urine RBC Urine WBC Ur Squamous Epith Cells Amorphous Sediment Urine Bacteria Urine Mucus Ur Culture Indicated? Nasal Screen MRSA (PCR) Salicylates Urine Opiates Screen Ur Oxycodone Screen Urine Methadone Screen Acetaminophen < 10 L Ur Barbiturates Screen U Tricyclic Antidepress Ur Phencyclidine Scrn Ur Amphetamines Screen U Methamphetamines Scrn Ur MDMA Scrn (Ecstasy) U Benzodiazepines Scrn [place] Urine Cocaine Screen U Marijuana (THC) Screen Ethyl Alcohol Assessment & Plan Assessment & Plan narrative: The patient is admitted to the hospital following intentional suicide attempt with overdose on unknown substance though thePatient is admitted to the ICU in stuporous state sinus bradycardia 1. Altered mental status, status post overdose, present on admission - patient states she took 29 tablets of clonazepam (0.5 mg) but could not state how long ago. -toxicology screen is negative for benzodiazepines as well as opiates, Tylenol or aspirin, or other toxic agents. [place] is assessed at less than 0.2. Alcohol is less than 10. -prolactin is slightly positive at 18.8. CT scan is negative for intracranial pathology. ABG partially compensated metabolic acidosis with respiratory alkalosis. -patient is arousable to to tactile stimulus and appears to be able to protect her own airway, -patient is NPO, will institute aspiration precautions, elevate head of bed 30?. -neuro checks every 4 hours. Vital signs per ICU standards, continuous cardiac monitoring. -RT to consult, oxygen as needed to maintain oxygen saturation greater than 93%. 2. Attempted suicide, active. -reportedly patient left a note stating overdose was intentional, note is not available for review. -patient has been placed on an involuntary hold by law enforcement. -suicide precautions initiated with patient placement in the intensive care unit close monitoring and observation. -social insurance administrator consult. 3. Chronic bipolar 1 disorder, active -patient has polypharmacy with multiple medications from multiple providers. -continue oxycarbazepine 300 mg twice daily, fluvoxamine 100 mg daily, risperidone 80 mg twice daily to prevent lowering of seizure threshold. 4. Goiter, unknown if acute or chronic, present on admission -Bilateral goiter, continue home medication of levothyroxine 125 mcg daily -TSH with reflex to T4. -will consider thyroid ultrasound. 5. Chronic polypharmacy, active -Many the patient's medications have unclear indication due to lack of in formation from patient or informed by the medical record -unknown if for seizures migraines or alcohol dependence, will continue topiramate 100 mg q.a.m. and 200 mg q.p.m. 6. Hyperlipidemia, chronic, stable -at this time holding p.o. medications including patient's atorvastatin 40 mg daily and fenofibrate 54 mg daily. Will resume as patient's status improves. The patient is admitted to the ICU with acute overdose and altered mental status due to risk complications and adverse events. The patient will not be able to be medically clear for psychiatric evaluation for several days and as such patient is an inpatient with expected length of stay to be greater than 2 midnights. Time Spent With Patient Time with patient: 15-24 minutes Scores GCS Jackie coma scale eye opening: To sound [place] coma scale verbal response: Orientated Jackie coma scale motor response: Obey commands Jackie coma scale total score: 14 Quality VTE Deep Vein Thrombosis/Pulmonary Embolism Present on Admission: No
[2018-12-09] VITALS (27 sets, daily range): BP systolic 84–120; BP diastolic 35–67; PULSE 65–91; RESP 18–25; TEMP 36.8–37.3; O2SAT 95–100
[2018-12-09] MEDS: SODIUM CHLORIDE 0.9% 1,000 ML 150 ML IV ×2 (00:14→20:29)
[2018-12-09 05:07] LABS: Add Manual Diff / Slide Review NO; Basophils Absolute Auto 100 /uL (0-100); Basophils Percent Auto 0.5 % (0-2); Eosinophils Absolute Auto 100 /uL (0-450); Eosinophils Percent Auto 0.9 % (2-4); Hematocrit 36.6 % (36-46); Hemoglobin 12.3 g/dL (12.0-16.0); Lymphocytes Absolute Auto 1400 /uL (1100-4500); Lymphocytes Percent Auto 14.7 % (25-40); Mean Corpuscular HGB Conc 33.5 % (30-36); Mean Corpuscular Hemoglobin 29.1 PG (26-34); Mean Corpuscular Volume 86.9 fL (80-100); Monocytes Absolute Auto 500 /uL (0-900); Monocytes Percent Auto 5.2 % (3-14); Neutrophils Absolute Auto 7500 /uL (1500-7000); Neutrophils Percent Auto 78.7 % (50-75); Platelet Count 171 X10^3/uL (150-400); Red Blood Cell Count 4.21 X10^6/uL (4.0-5.2); Red Cell Distribution Width 14.9 % (11.6-14.8); White Blood Cell Count 9.6 X10^3/uL (4.5-11.0)
[2018-12-09 05:08] LABS: Blood Urea Nitrogen 11 mg/dL (7-17); Calcium 8.9 mg/dL (8.4-10.2); Carbon Dioxide 21 mmol/L (22-32); Chloride 114 mmol/L (98-107); Estimated Glomerular Filt Rate 54.7 mL/min (>60); Glucose 147 mg/dL (70-100); HEMOLYSIS 17 (0-50); Potassium 3.4 mmol/L (3.4-5.1); Sodium 143 mmol/L (137-145)
[2018-12-09 06:02] LABS: TSH w/ Reflex to FT4 0.96 uIU/mL (0.47-4.68)
[2018-12-09] MEDS: SODIUM CHLORIDE 0.45% 1,000 ML 100 ML IV (06:27)
--- NOTE | 2018-12-09 06:43 | PC.NURSE ---
Patient remains very drowsy throughout night, responded briefly to commands, mumbles that she in in hospital, requested water in am, was able to take few ice chips without choking, HOB has been elevated. SR, rate 60s-80s, no ectopi or enlongated QTc. BP 90s/50s with MAP mostly 70s, RR 20-25, SpO2 97-99% on RA, afebrile, face is warm and moist. Verbally denies pain. Suicide and seizure precautions in place.
[2018-12-09 07:52] LABS: Urine Amphetamines Negative (Negative); Urine Barbiturates Negative (Negative); Urine Cocaine Negative (Negative); Urine MDMA Negative (Negative); Urine Methamphetamines Negative (Negative); Urine Morphine/Opi cutoff 2000 Negative (Negative); Urine Phencyclidine Negative (Negative); Urine Tetrahydrocannabinol Negative (Negative)
[2018-12-09 07:53] LABS: Urine Benzodiazepines Positive (Negative); Urine Methadone Negative (Negative); Urine Oxycodone Negative (Negative); Urine Tricyclic Antidepressant Positive (Negative)
[2018-12-09] MEDS: FAMOTIDINE 20 MG/50 ML PIGGYBACK 200 MG IV ×2 (08:50→20:29)
[2018-12-09] MEDS: SODIUM CHLORIDE 0.9% FLUSH 10 ML IV ×2 (08:51→20:30)
[2018-12-09] MEDS: ENOXAPARIN 40 MG/0.4 ML SYRINGE SUBCUT (08:52)
[2018-12-09] MEDS: SODIUM CHLORIDE 0.9% 1,000 ML 100 ML IV (08:57)
[2018-12-09] MEDS: OXcarbazepine 150 MG TABLET 300 MG PO (10:34)
[2018-12-09] MEDS: LEVOTHYROXINE 125 MCG TABLET PO (10:42)
--- NOTE | 2018-12-09 13:41 | P.PN_ITS ---
Subjective Date Patient Seen: 12/09/18 Interval history: Roberta Chin is a 43-year-old female patient with a past history significant for bipolar disorder and prior multiple suicidal attempts who presents to [facility] the EMS following being found down in her hotel room for unknown period of time. The patient is resting in bed comfortably. She is rather somnolent but arouses to stimulation. She has lid lag bilaterally L>R and her words are quite mumbled. Her only complaint is that she is fatigued. She reports the only medication she has taken is clonazepam. Discussed her psychiatric history for which she was not able to give me much guidance other than she does not have a seizure disorder and she has been diagnosed with severe depression. She denies previous suicide attempt. She informs me that this suicide attempt was due to an [employer] that left her and ?she thought it she contrast him.? She denies pain. She is voiding via boykin catheter. She has not had a bowel movement since admission. She is on strict bedrest with seizure precautions in place. Exam Vital Signs (past 8 hours): - 12/09/18 06:05 12/09/18 07:00 12/09/18 08:00 Temperature 99.0 F 98.3 F Pulse Rate 82 81 79 Respiratory Rate 18 23 25 H Blood Pressure 97/51 L 95/61 116/57 L Pulse Oximetry 99 99 97 12/09/18 09:00 12/09/18 11:00 12/09/18 12:00 Temperature 98.8 F Pulse Rate 91 H 76 82 Respiratory Rate 24 25 H 24 Blood Pressure 95/59 L 111/53 L 99/54 L Pulse Oximetry 98 98 98 12/09/18 13:00 Temperature Pulse Rate 80 Respiratory Rate 23 Blood Pressure 110/67 Pulse Oximetry 97 Oxygen Delivery Method Room Air Oxygen Flow Rate 0 Narrative Exam Narrative: General: Young middle aged women lying in bed, somnolent but arousable, protecting airway. HEENT: Normocephalic, atraumatic. External ears without defect. Pupils equal, round, and reactive to light. Anicteric sclerae and moist conjunctivae. Bilateral lid lag L>R. Neck: Supple with full range of motion. No jugular venous distension. No lymphadenopathy or thyromegaly. Cardiovascular: Regular rate and rhythm without murmurs, rubs, or gallops appreciated. Pulmonary: Clear to auscultation bilaterally without crackles, wheezes, or rhonchi. Normal respiratory effort without use of accessory muscles. Abdomen: Soft, bowel sounds present, nontender, nondistended. No hepatosplenomegaly or masses appreciated. Extremities: No clubbing, cyanosis, or edema. Skin: Normal temperature, turgor, and texture; no rash, ulcers, or subcutaneous nodules appreciated. Neurological: Cranial nerves grossly intact. Psychiatric: Somnolent but arousable to external stimuli. Patients words are mumbled/garbled but at times comprehensible. Objective Labs Result Diagrams: 12/09/18 04:40 12/09/18 04:40 Labs: Laboratory Results - last 24 hr 12/08/18 12/08/18 12/08/18 13:00 13:00 13:11 WBC RBC Hgb Hct MCV MCH MCHC RDW Plt Count Neut % (Auto) Lymph % (Auto) [place] % (Auto) Eos % (Auto) Baso % (Auto) Neut # (Auto) Lymph # (Auto) [place] # (Auto) Eos # (Auto) Baso # (Auto) Sodium Potassium Chloride Carbon Dioxide BUN Creatinine Estimated GFR BUN/Creatinine Ratio Glucose Lactate Calcium Magnesium Ammonia TSH Prolactin 18.8 H Urine Color Yellow Urine Appearance Clear Urine pH 6.5 Ur Specific [place] 1.010 Urine Protein Negative Urine Glucose (UA) Negative Urine Ketones Negative Urine Occult Blood Negative Urine Nitrate Negative Urine Bilirubin Negative Urine Urobilinogen 0.2 Ur Leukocyte Esterase Negative Urine RBC None seen Urine WBC 0-1/hpf Ur Squamous Epith Cells 1-5 /hpf Amorphous Sediment 1+ Urine Bacteria None seen Urine Mucus 1+ H Ur Culture Indicated? Cult not indicated Nasal Screen MRSA (PCR) Urine Opiates Screen Negative Ur Oxycodone Screen Negative Urine Methadone Screen Negative Acetaminophen Ur Barbiturates Screen Negative U Tricyclic Antidepress Negative Ur Phencyclidine Scrn Negative Ur Amphetamines Screen Negative U Methamphetamines Scrn Negative Ur MDMA Scrn (Ecstasy) Negative U Benzodiazepines Scrn Negative [place] Urine Cocaine Screen Negative U Marijuana (THC) Screen Negative 12/08/18 12/08/18 12/08/18 13:11 13:32 13:32 WBC RBC Hgb Hct MCV MCH MCHC RDW Plt Count Neut % (Auto) Lymph % (Auto) [place] % (Auto) Eos % (Auto) Baso % (Auto) Neut # (Auto) Lymph # (Auto) [place] # (Auto) Eos # (Auto) Baso # (Auto) Sodium Potassium Chloride Carbon Dioxide BUN Creatinine Estimated GFR BUN/Creatinine Ratio Glucose Lactate 1.7 Calcium Magnesium Ammonia 33.0 H TSH 0.74 Prolactin Urine Color Urine Appearance Urine pH Ur Specific [place] Urine Protein Urine Glucose (UA) Urine Ketones Urine Occult Blood Urine Nitrate Urine Bilirubin Urine Urobilinogen Ur Leukocyte Esterase Urine RBC Urine WBC Ur Squamous Epith Cells Amorphous Sediment Urine Bacteria Urine Mucus Ur Culture Indicated? Nasal Screen MRSA (PCR) Urine Opiates Screen Ur Oxycodone Screen Urine Methadone Screen Acetaminophen Ur Barbiturates Screen U Tricyclic Antidepress Ur Phencyclidine Scrn Ur Amphetamines Screen U Methamphetamines Scrn Ur MDMA Scrn (Ecstasy) U Benzodiazepines Scrn [place] Urine Cocaine Screen U Marijuana (THC) Screen 12/08/18 12/08/18 12/08/18 13:32 16:05 18:48 WBC RBC Hgb Hct MCV MCH MCHC RDW Plt Count Neut % (Auto) Lymph % (Auto) [place] % (Auto) Eos % (Auto) Baso % (Auto) Neut # (Auto) Lymph # (Auto) [place] # (Auto) Eos # (Auto) Baso # (Auto) Sodium Potassium Chloride Carbon Dioxide BUN Creatinine Estimated GFR BUN/Creatinine Ratio Glucose Lactate Calcium Magnesium 2.0 Ammonia TSH Prolactin Urine Color Urine Appearance Urine pH Ur Specific [place] Urine Protein Urine Glucose (UA) Urine Ketones Urine Occult Blood Urine Nitrate Urine Bilirubin Urine Urobilinogen Ur Leukocyte Esterase Urine RBC Urine WBC Ur Squamous Epith Cells Amorphous Sediment Urine Bacteria Urine Mucus Ur Culture Indicated? Nasal Screen MRSA (PCR) Negative for mrsa Urine Opiates Screen Ur Oxycodone Screen Urine Methadone Screen Acetaminophen Ur Barbiturates Screen U Tricyclic Antidepress Ur Phencyclidine Scrn Ur Amphetamines Screen U Methamphetamines Scrn Ur MDMA Scrn (Ecstasy) U Benzodiazepines Scrn [place] < 0.2 L Urine Cocaine Screen U Marijuana (THC) Screen 12/08/18 12/09/18 12/09/18 19:23 04:40 04:40 WBC 9.6 RBC 4.21 Hgb 12.3 Hct 36.6 MCV 86.9 MCH 29.1 MCHC 33.5 RDW 14.9 H Plt Count 171 Neut % (Auto) 78.7 H Lymph % (Auto) 14.7 L [place] % (Auto) 5.2 Eos % (Auto) 0.9 L Baso % (Auto) 0.5 Neut # (Auto) 7500 H Lymph # (Auto) 1400 [place] # (Auto) 500 Eos # (Auto) 100 Baso # (Auto) 100 Sodium 143 Potassium 3.4 Chloride 114 H Carbon Dioxide 21 L BUN 11 Creatinine 1.10 H Estimated GFR 54.7 L BUN/Creatinine Ratio 10.0 Glucose 147 H Lactate Calcium 8.9 Magnesium Ammonia TSH Prolactin Urine Color Urine Appearance Urine pH Ur Specific [place] Urine Protein Urine Glucose (UA) Urine Ketones Urine Occult Blood Urine Nitrate Urine Bilirubin Urine Urobilinogen Ur Leukocyte Esterase Urine RBC Urine WBC Ur Squamous Epith Cells Amorphous Sediment Urine Bacteria Urine Mucus Ur Culture Indicated? Nasal Screen MRSA (PCR) Urine Opiates Screen Ur Oxycodone Screen Urine Methadone Screen Acetaminophen < 10 L Ur Barbiturates Screen U Tricyclic Antidepress Ur Phencyclidine Scrn Ur Amphetamines Screen U Methamphetamines Scrn Ur MDMA Scrn (Ecstasy) U Benzodiazepines Scrn [place] Urine Cocaine Screen U Marijuana (THC) Screen 12/09/18 12/09/18 04:40 07:35 WBC RBC Hgb Hct MCV MCH MCHC RDW Plt Count Neut % (Auto) Lymph % (Auto) [place] % (Auto) Eos % (Auto) Baso % (Auto) Neut # (Auto) Lymph # (Auto) [place] # (Auto) Eos # (Auto) Baso # (Auto) Sodium Potassium Chloride Carbon Dioxide BUN Creatinine Estimated GFR BUN/Creatinine Ratio Glucose Lactate Calcium Magnesium Ammonia TSH 0.96 Prolactin Urine Color Urine Appearance Urine pH Ur Specific [place] Urine Protein Urine Glucose (UA) Urine Ketones Urine Occult Blood Urine Nitrate Urine Bilirubin Urine Urobilinogen Ur Leukocyte Esterase Urine RBC Urine WBC Ur Squamous Epith Cells Amorphous Sediment Urine Bacteria Urine Mucus Ur Culture Indicated? Nasal Screen MRSA (PCR) Urine Opiates Screen Negative Ur Oxycodone Screen Negative Urine Methadone Screen Negative Acetaminophen Ur Barbiturates Screen Negative U Tricyclic Antidepress Positive H Ur Phencyclidine Scrn Negative Ur Amphetamines Screen Negative U Methamphetamines Scrn Negative Ur MDMA Scrn (Ecstasy) Negative U Benzodiazepines Scrn Positive H [place] Urine Cocaine Screen Negative U Marijuana (THC) Screen Negative Assessment & Plan Assessment & Plan narrative: Roberta Chin is a 43-year-old female patient with a past history significant for bipolar disorder and prior multiple suicidal attempts who presents to the emerg ency department the EMS following being found down in her hotel room for unknown period of time. 1. Toxic metabolic encephalopathy, secondary to intentional toxin ingestion and suicide attempt, present on admission. Active. -Patient presented after intentional suicide attempt in which she reportedly took 29 tablets of clonazepam 0.5 mg prior to admission. Patient presented somnolent but arousable to sternal rub and tactile stimulation. Protecting airway. Continues to be quite somnolent but arousable with mumbled speech. Patient was able to have some PO intake. -Repeat toxicology screen is positive for benzodiazepines and TCA. Tylenol level < 10 x2. -Prolactin is slightly elevated at 18.8, however, patient denies history of seizures. -CT brain without contrast demonstrated no acute intracranial abnormalities. -ABG demonstrated partially compensated metabolic acidosis with respiratory alkalosis. -Continue aspiration precautions with elevate head of bed 30?. -Continue neuro checks every 4 hours. -Continue to monitor vital signs and telemetry closely. -Consulted respiratory therapy for possible need of oxygen. Oxygen saturation goal 92% or greater. 2. Intentional suicide attempt, present on admission. Active. -Reportedly patient left a note stating overdose was intentional, note is not available for review. -Patient has been placed on an BASILIO hold by law enforcement. -Suicide precautions initiated with patient placed in ICU for close monitoring and observation. -Consulted FILLING STATION EQUIPMENT MECHANIC so that once patient medically cleared and stable may contact R. 3. Bipolar 1 disorder, chronic, present on admission. Active. -Patient has polypharmacy with multiple medications from multiple providers. -Consulted Psychiatry, Dr. Newell, who recommends continuing oxcarbazepine 300 mg twice daily and fluvoxamine 100 mg daily. Hold all other medications including clonazepam, topiramate, trazodone, and ziprasidone. Dr. Newell will plan to formally consult once the patient is more awake and alert. 4. Hypothyroidism secondary to multinodular goiter, likely chronic, present on admission. Stable. -TSH within normal limits at 0.96. -Continue levothyroxine 125 mcg daily. 5. Chronic polypharmacy, present on admission. Active. -Patient has multiple providers prescribing multiple psychiatric and centrally acting medications. Many of the patient's medications have unclear indication (seizures vs migraines vs opiate dependence vs alcohol dependence vs. bipolar disorder vs MDD with psychotic features vs) due to lack of information that can be provided by the patient or information provided by the medical record. 6. Hyperlipidemia, chronic, present on admission. Presumed stable. -Held atorvastatin 40 mg daily and fenofibrate 54 mg daily and will resume as patient's status improves. Disposition: Patient likely to discharge in 1-2 days depending upon clinical improvement after clonazepam overdose. Quality VTE Deep Vein Thrombosis/Pulmonary Embolism Present on Admission: No
[2018-12-09] MEDS: POTASSIUM CHLORIDE 40 MEQ in SODIUM CHLORIDE 0.9% 500 ML 130 ML IV (13:48)
--- NOTE | 2018-12-09 14:31 | PC.NURSE ---
Pt has remained drowsy/somnolent. Awakens to verbal stimuli but has difficulty maintaining eye opening/wakefulness. Answering questions with delay/mumbled speech but is able to state name, , location is hospital, date/year. 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 She quickly falls back asleep. VSS. Able to swallow pills whole with thin liquids and eat some jello, applesauce, and yogurt with assistance and cues. Pt was able to sit up to the edge of the bed with 1PA but is very unbalanced and leans backwards if not supported. Pt has been cooperative with care. Call light in reach and bed alarm in use along with constant supervision/suicide precautions.
--- NOTE | 2018-12-09 15:59 | CM.SWNOTE ---
SPOT FACER Note: Briefly reviewed chart. Patient is a 43yr old female admitted to [facility] after apparent overdose. SPOT FACER has spoken with ICU/RN's today and Dr. Pineda, patient very difficult to wake up. Attempted visit but patient snoring and unable to arouse. Therefore, will request ED/SPOT FACER to assess this evening if patient appropriate. Per RN, patient came from [place] and has spouse/Armando Chin that has called a few times. To date very little information known about this patient. P: Pending GUANAKO Maddox
--- NOTE | 2018-12-09 16:07 | CM.DPNOTE ---
DCP/AIR BOATSWAIN Assessment: Unable to assess due to sleepiness, most likely secondary to overdose. Additional notes can be found in Social Work Notes. Patient will need to be seen for SI/HI when appropriate. P: Pending GUANAKO Maddox Discharge Planning/Care Management CM Discharge Assessment Start: 12/09/18 16:06 Freq: Status: Active Protocol: Document 12/09/18 16:06 INDIGOS (Rec: 12/09/18 16:07 [id number]) Discharge Planning Assessment Assigned Government Service Executive GUANAKO Maddox Contact Information Armando Chin (spouse) [phone] Advance Directives? No History Provided By Medical Record Is patient alert and oriented? No Review Status In Process Next Review Type Continued Stay Review
--- NOTE | 2018-12-09 18:16 | CM.DANOTE ---
SW/DCP note: Pt is a 43 yo female admitted to ICU due to an intentional overdose. She was found unresponsive by hotel staff. Pt lives in [place], [place] in a single family home with her and 19 yo daughter. Their 21 yo son moved out and lives in the area. Since pt was difficult to arouse and snoring quite loudly, DATA STORAGE SPECIALIST contacted pt's spouse (HERO) to obtain information. Pt is independent with bathing, toileting, and eating, but depends upon her for meal preparation and driving her to appointments. He reported that she can cook in the microwave, but has not cooked a meal in 10 years. PCP is not known. Primary payor is out of State [employer]. Plan: pt will be evaluated by psychiatry. Anticipate psychiatric hospitalization when patient is medically clear. SW to continue to follow. Discharge Planning/Care Management CM Discharge Assessment Start: 12/09/18 16:06 Freq: Status: Active Protocol: Document 12/09/18 16:06 [facility] (Rec: 12/09/18 16:07 [id number]) Discharge Planning Assessment Assigned Sustainability Coach GUANAKO Maddox Contact Information Armando Chin (spouse) Advance Directives? No History Provided By Medical Record Is patient alert and oriented? No Review Status In Process Next Review Type Continued Stay Review Document 12/09/18 18:06 BG (Rec: 12/09/18 18:10 BG [id number]) Discharge Planning Assessment Assigned Sustainability Coach GUANAKO Maddox Contact Information Armando Chin (spouse) Advance Directives? No History Provided By Family Member Medical Record Prior Living Arrangements House Household Members spouse children Comment Pt's 19 yo daughter lives with pt and her . Type of transporation used prior to Relies on Others admit Comment Pt rarely drives although she has a license. takes to appointments as needed. Independent with ADL's Yes Is patient alert and oriented? No Needs Assistance With Meal Prep Comment According to spouse, does not cook. Review Status In Process Please Provide Date Initial DC 12/09/18 Assessment Was Performed Next Review Type Continued Stay Review
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
--- NOTE | 2018-12-09 18:24 | PC.NURSE ---
1800 - Pt awakens briefly following visit by Dr. Pineda and CM. Able to have a few sips of juice, declines bites of food. Requesting to get up and take a shower so that she may go home. Reoriented to place, situation and treatment plan. After a short time of pt sitting up in bed, she returned to snoring. Bed alarm on. Call light in reach.
[2018-12-10] VITALS (12 sets, daily range): BP systolic 90–120; BP diastolic 51–78; PULSE 65–111; RESP 14–26; TEMP 36.7–37.6; O2SAT 97–100
[2018-12-10] MEDS: SODIUM CHLORIDE 0.9% 1,000 ML 150 ML IV (03:55)
[2018-12-10 05:08] LABS: Blood Urea Nitrogen 7 mg/dL (7-17); Calcium 8.8 mg/dL (8.4-10.2); Carbon Dioxide 22 mmol/L (22-32); Chloride 114 mmol/L (98-107); Estimated Glomerular Filt Rate > 60.0 mL/min (>60); Glucose 132 mg/dL (70-100); HEMOLYSIS < 15 (0-50); Magnesium 1.8 mg/dL (1.6-2.3); Potassium 3.3 mmol/L (3.4-5.1); Sodium 142 mmol/L (137-145)
[2018-12-10] MEDS: POTASSIUM CHLORIDE 40 MEQ in SODIUM CHLORIDE 0.9% 500 ML 130 ML IV (06:40)
--- NOTE | 2018-12-10 07:08 | PC.NURSE ---
Patient remains drowsy, speech is more clear when she does say short sentences, asks for sips water or asks for her mom then falls back to sleep. SR, VSS, SpO2 98% on RA. K+ rider started in am.
[2018-12-10] MEDS: FAMOTIDINE 20 MG/50 ML PIGGYBACK 200 MG IV (09:51)
[2018-12-10] MEDS: ENOXAPARIN 40 MG/0.4 ML SYRINGE SUBCUT (09:51)
[2018-12-10] MEDS: LEVOTHYROXINE 125 MCG TABLET PO (09:51)
[2018-12-10] MEDS: OXcarbazepine 150 MG TABLET 300 MG PO (09:52)
[2018-12-10] MEDS: SODIUM CHLORIDE 0.9% FLUSH 10 ML IV (09:52)
--- NOTE | 2018-12-10 12:40 | CM.DPC ---
DCP/continued: Received notification from Dr. Pineda that patient medically stable for DCR assessment. Dr. Pineda reports patient untrustworthy re: current suicidal thoughts and previous attempts. PHYSICIST SOLID EARTH met with patient explained PHYSICIST SOLID EARTH role. Patient alert and oriented during visit a bit sleepy. Eye contact minimal. Patient reports that she came to [place] to hike, bike, and explore the area. Patient's answers very vague. Patient reports that she did take too many pills because she did not know what to do? Per patient, her Uber bottom hoop driver never showed up? Patient then reports that Uber bottom hoop driver has all her belongings including her suitcase? PHYSICIST SOLID EARTH/Della Melara spoke with patient's spouse via the telephone last pm (see notes for details). Patient with h/o bipolar/manic depression. Patient has had numerous hospitalizations both involuntary and voluntary. PHYSICIST SOLID EARTH asked patient if she was currently having suicidal ideation? Patient reports no at present time but does admit to having them off/on. Dr. Pineda requesting call to [facility] for DCR dispatch. Attestation form completed and faxed to [facility] Patient has no clear plan on her next steps. Given patient's mental health history and fact that she flew all the way across the country alone and intentionally admits to suicide attempt. Patient appears to be at high risk for continued irrational behavior/thoughts if not treated. P: DCR dispatched for possible detainment. GUANAKO Maddox
--- NOTE | 2018-12-10 14:54 | PC.NURSE ---
Pt has been much more awake/alert compared to this RNs 12/09 assessment. She answers most questions appropriately regarding orientation. She admits to attempting suicide by taking her own medications. She denies current SI and states she just wants to go home. She tells different staff members different stories regarding the reasoning behind her suicide attempt. Most of it relates to her not being able to trust an uber shuttle bus driver. She is walking with a slow, steady gait to the BR. She has had a BM and is voiding without difficulty. She denies shortness of breath and VSS other than mild tachycardia on exertion up to 110s. The pt denies symptoms. Maintaining a 1:1 sitter for safety per protocol, bed alarm.
[2018-12-10 15:50] LABS: HEMOLYSIS < 15 (0-50); Potassium 3.7 mmol/L (3.4-5.1)
--- NOTE | 2018-12-10 16:39 | PM.DS.1 ---
History of Present Illness Date Patient Seen: 12/08/18 Chief complaint: Overdose Narrative: Written by Wu FULLER: Ms. Roberta Chin is a 43-year-old female patient with history significant for bipolar disorder, prior multiple suicidal attempts who presents to the emergency department the EMS following being found down in her hotel room for unknown period of time. Little medical information is available as it appears the patient is here for job interview from out of the area. The patient was found down in her room at her hotel following missing checkout time. A note was found in the patient's room but is not available for review but with allegedly indicats that this was an intentional overdose with directions on what to do with her belongings. The ER provider did speak with patient's who ascertained that the patient has had multiple prior suicide attempts. It is noted the patient has significant polypharmacy from numerous different providers. The patient is very somnolent responding to verbal stimulus and able to state that she is in [place] and state the year but has difficulty with the month. Her speech is slurred and she mumbles and is only able to remain responsive for brief periods. The patient is able to indicate that she took clonazepam and on repeated questioning acknowledges that she took 29 pills, confirms the bottle was full and that she is not taking the medication since prescribed in October. The remainder the patient's medications appear to have been accounted for. The patient is unable to participate in a meaningful review of systems however she denies complaints of pain, has no chest pain or shortness of breath, abdominal pain or nausea. Upon arrival in the ER the patient was afebrile at 97.4, bradycardic at heart rate of 46, blood pressure 105/85, respirations 14 saturating 100% on room air. A CT of the head was obtained finding no acute intracranial processes. Laboratory analysis reveals white count of 9.4, hemoglobin of 14.3 and hematocrit of 41.4 with a platelet count of 241. Her coagulation studies are within normal limits as are her electrolytes. Her BUN and creatinine are 11 and 1.0 respectively. A nonfasting glucose is 133. Lactic acid is 1.3 and magnesium 2.0. An ABG was obtained finding pH of 7.33, pCO2 34.9, PO2 of 92 with a bicarb of 19 and base excess of -7 on room air. Tox screen is negative for benzodiazepines negative for lithium, aspirin or Tylenol or other substances. At this time the patient is admitted to the ICU stuporous following overdose of unclear source in an intentional suicide attempt. Discharge Providers Date of admission: 12/08/18 15:20 Discharge Date: 12/10/18 Consults: 12/08/18 20:19 Consult to Discharge Planning Routine Comment: Consult to [employer] Routine Comment: Intentioinal suicide attempt, polypharmacy 12/09/18 07:09 Consult to Physician Routine Comment: Consulting Provider: Howard Newell Reason for consultation: suicide attempt and medication management Has provider been notified: Yes Discharge provider: Yara Pineda DO Summary Discharge Diagnosis: 1. Toxic metabolic encephalopathy, secondary to intentional toxin ingestion and suicide attempt, present on admission. Resolved. 2. Intentional suicide attempt, present on admission. Active. 3. Bipolar 1 disorder, acute on chronic, present on admission. Active. 4. Hypothyroidism secondary to multinodular goiter, likely chronic, present on admission. Stable. 5. Chronic polypharmacy, present on admission. Active. 6. Hyperlipidemia, chronic, present on admission. Presumed stable. 7. Hypothyroidism, chronic, present on admission. Stable. Hospital Course: Roberta Chin is a 43-year-old female patient with a past history significant for bipolar disorder and prior multiple suicidal attempts who presents to the emergency department the EMS following being found down in her hotel room for unknown period of time. 1. Toxic metabolic encephalopathy, secondary to intentional toxin ingestion and suicide attempt, present on admission. Resolved. -Patient presented after intentional suicide attempt in which she reportedly took 29 tablets of clonazepam 0.5 mg prior to admission. Patient presented somnolent but arousable to sternal rub and tactile stimulation. Now awake, alert and medically stable. -Repeat toxicology screen is positive for benzodiazepines and TCA. Tylenol level < 10 x2. -Prolactin is slightly elevated at 18.8, however, patient denies history of seizures. -CT brain without contrast demonstrated no acute intracranial abnormalities. -ABG demonstrated partially compensated metabolic acidosis with respiratory alkalosis. -Continued aspiration precautions with head of bed elevated to 30?. -Continued neuro checks every 4 hours. -Continued to monitor vital signs and telemetry closely. -Consulted respiratory therapy for possible need of oxygen but not needed. Oxygen saturation goal 92% or greater. 2. Intentional suicide attempt, present on admission. Active. -Reportedly patient left a note stating overdose was intentional, note is not available for review. -Suicide precautions initiated with patient placed in ICU for close monitoring and observation. -Patient has been detained under BASILIO by DCR to [facility]. 3. Bipolar 1 disorder, acute on chronic, present on admission. Active. -Patient has polypharmacy with multiple medications from multiple providers. -Consulted Psychiatry, Dr. Newell, who recommends continuing ziprasidone 80 mg twice daily, oxcarbazepine 300 mg twice daily and fluvoxamine 100 mg daily. Held all other medications including clonazepam, topiramate, sumatriptan, and trazodone. Dr. Newell will plan to formally consult once the patient is more awake and alert. 4. Hypothyroidism secondary to multinodular goiter, likely chronic, present on admission. Stable. -TSH within normal limits at 0.96. -Continue levothyroxine 125 mcg daily. 5. Chronic polypharmacy, present on admission. Active. -Patient has multiple providers prescribing multiple psychiatric and centrally acting medications. Many of the patient's medications have unclear indication and may be used for seizures vs migraines vs opiate dependence vs alcohol dependence vs. bipolar disorder vs MDD with psychotic features). The patient reports she takes her medications for bipolar 1 disorder, anxiety, and migraine headaches. 6. Hyperlipidemia, chronic, present on admission. Presumed stable. -Continued aspirin 81 mg daily, atorvastatin 40 mg daily, and fenofibrate 54 mg daily and will resume as patient's status improves. 7. Hypothyroidism, chronic, present on admission. Stable. -Continued levothyroxine 125 mcg daily. Status at Discharge Functional status at discharge: independent ambulation Overall status at discharge: patient is progressing back to baseline Exam Vital Signs (past 8 hours): - 12/10/18 09:17 12/10/18 11:59 12/10/18 15:28 Temperature 98.4 F 98.3 F Pulse Rate 89 82 79 Respiratory Rate 20 20 22 Blood Pressure 107/66 120/67 Pulse Oximetry 100 100 99 Oxygen Delivery Method Room Air Oxygen Flow Rate 0 Narrative Exam Narrative: General: Young middle aged women lying in bed, in no acute distress, awake and alert, manic HEENT: Normocephalic, atraumatic. External ears without defect. Pupils equal, round, and reactive to light. Anicteric sclerae and moist conjunctivae. Bilateral lid lag L>R. Neck: Supple with full range of motion. No jugular venous distension. No lymphadenopathy or thyromegaly. Cardiovascular: Regular rate and rhythm without murmurs, rubs, or gallops appreciated. Pulmonary: Clear to auscultation bilaterally without crackles, wheezes, or rhonchi. Normal respiratory effort without use of accessory muscles. Abdomen: Soft, bowel sounds present, nontender, nondistended. No hepatosplenomegaly or masses appreciated. Extremities: No clubbing, cyanosis, or edema. Skin: Normal temperature, turgor, and texture; no rash, ulcers, or subcutaneous nodules appreciated. Neurological: Cranial nerves grossly intact. Horizontal nystagmus. Psychiatric: Patient appears to be actively manic and telling different versions of story to different providers, illogical, at times emotionally labile and tearful, denies thoughts of harming herself or others. Objective Labs Result Diagrams: 12/09/18 04:40 12/10/18 15:14 Labs: Laboratory Results - last 24 hr 12/10/18 12/10/18 04:45 15:14 Sodium 142 Potassium 3.3 L 3.7 Chloride 114 H Carbon Dioxide 22 BUN 7 Creatinine 1.00 Estimated GFR > 60.0 BUN/Creatinine Ratio 7.0 Glucose 132 H Calcium 8.8 Magnesium 1.8 Discharge Plan Discharge Plan Patient Disposition: Xfer Psychiatric Hosp Transfer to: [facility] Transportation: Ambulance Discharge Med Rec/Prescriptions Prescriptions: Continued ziprasidone HCl 80 mg capsule 80 mg PO BID RF: 0 atorvastatin 40 mg tablet 40 mg PO DAILY RF: 0 gabapentin 600 mg tablet 600 mg PO TID RF: 0 sumatriptan succinate 100 mg tablet 100 mg PO .ONCE PRN (Reason: Migraine Headache) RF: 0 sucralfate 1 gram tablet 1 g PO BID RF: 0 naltrexone 50 mg tablet 50 mg PO DAILY RF: 0 clonazepam 0.5 mg tablet 0.5 mg PO DAILY PRN (Reason: Anxiety) RF: 0 propranolol 60 mg capsule,extended release 24 hr 60 mg PO DAILY RF: 0 oxcarbazepine 300 mg tablet 300 mg PO BID RF: 0 trazodone 100 mg tablet 100 mg PO BEDTIME RF: 0 fluvoxamine 100 mg tablet 100 mg PO DAILY RF: 0 esomeprazole magnesium 40 mg capsule,delayed release(DR/EC) 40 mg PO DAILY RF: 0 levothyroxine 125 mcg tablet 125 mcg PO DAILY RF: 0 aspirin 81 mg Tablet,Chewable 81 mg PO DAILY RF: 0 topiramate 100 mg tablet 100 mg PO QAM RF: 0 topiramate 100 mg tablet 200 mg PO QPM RF: 0 B-complex with vitamin C [Super B Complex-Vitamin C] Tablet 1 tab PO DAILY RF: 0 olopatadine 0.2 % drops 1 drp ophthalmic (eye) DAILY PRN (Reason: Allergy Symptoms) RF: 0 levocetirizine 5 mg Tablet 5 mg PO PRN PRN (Reason: Allergy Symptoms) RF: 0 diclofenac sodium 1 % gel 2 g topical QID RF: 0 fenofibrate 54 mg tablet 54 mg PO DAILY RF: 0 PNV cmb#95-ferrous fumarate-FA [] 28 mg iron- 800 mcg Tablet 1 tab PO DAILY RF: 0 Discharge Orders: Discharge (Order); Ordered 12/10/18 Ordered By: Yara Pineda Provider Discharge Instructions Diet: Diet as Tolerated Discharge Data Attending Provider: Yara Pineda Admit Date/Time: 12/08/18 15:20 Quality VTE Deep Vein Thrombosis/Pulmonary Embolism Present on Admission: No
[2018-12-10] MEDS: ACETAMINOPHEN 325 MG TABLET 650 MG PO (16:43)
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
== END 2018-12-10 20:30 | DRG 917 ==
LOC: ED 15:07 → AC 15:22 → ICU 15:52
PROVIDERS: Nurse Practitioner Adult Health; Admitting Provider Internal Medicine; Emergency Provider Emergency Medicine; Visit Provider Internal Medicine
DX: T42.4X2A Poisoning by benzodiazepines, intentional self-harm, initial encounter (principal); G92 Toxic encephalopathy; R40.2122 Coma scale, eyes open, to pain, at arrival to emergency department; R40.2222 Coma scale, best verbal response, incomprehensible words, at arrival to emergency department; E87.2 Acidosis; E87.3 Alkalosis; R40.2352 Coma scale, best motor response, localizes pain, at arrival to emergency department; F31.9 Bipolar disorder, unspecified; E03.9 Hypothyroidism, unspecified; E78.5 Hyperlipidemia, unspecified
CPT/HCPCS: 36415; 36591; 36600; 51701; 70450; 71045; 80048; 80053; 80178; 80305; 80320; 80329; 81001; 81025; 82140; 82550; 82805; 82962; 83605; 83735; 84132; 84146; 84443; 84484; 85025; 85610; 85730; 87040; 87086; 87797; 90792; 93005; 96360; 96361; 99284; 99285; G0480; J0696; J1650; J2310; J3480; J7050